=== PATIENT | female | born 2000 | race Caucasian/White ===

== ENCOUNTER 2023-04-25 22:10 | Outpatient (REF) | payer OTHER, SELFPAY ==
[2023-05-01 11:12] LABS: Age Gdln ACOG Testing Note (.); IGP, rfx Aptima HPV ASCU Note (.)
== END 2023-04-25 22:11 | disposition home or self-care (01) ==
LOC: LAB 22:10
PROVIDERS: PCP Obstetrics & Gynecology; Visit Provider Obstetrics & Gynecology
DX: Z12.4 Encounter for screening for malignant neoplasm of cervix (principal)
CPT/HCPCS: G0145

== ENCOUNTER 2024-04-29 19:03 | Outpatient (REF) | payer OTHER, SELFPAY | END 2024-04-29 19:04 | disposition home or self-care (01) | LOC: LAB 19:03 | PROVIDERS: PCP Obstetrics & Gynecology; Visit Provider Obstetrics & Gynecology | DX: Z01.419 Encounter for gynecological examination (general) (routine) without abnormal findings (principal) | CPT/HCPCS: 88175 ==

== ENCOUNTER 2024-12-10 12:02 | Outpatient (OUT) | payer OTHER, SELFPAY ==
[2024-12-11 05:07] LABS: HIV Ab/p24 Ag Screen Non Reactive (Non Reactive)
[2024-12-11 06:08] LABS: HBsAg Screen Negative (Negative)
[2024-12-11 12:09] LABS: Rapid Plasma Reagin, Quant Non Reactive titer (NonRea<1:1)
== END 2024-12-10 12:03 | disposition home or self-care (01) ==
LOC: LAB 12:06
PROVIDERS: Visit Provider Obstetrics & Gynecology
DX: Z20.2 Contact with and (suspected) exposure to infections with a predominantly sexual mode of transmission (principal)
CPT/HCPCS: 36415; 86592; 87340; 87389

== ENCOUNTER 2025-05-07 14:24 | Outpatient (REF) | payer OTHER, SELFPAY ==
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
--- OUTSIDE RECORDS SUMMARY | 2025-05-07 14:40 | XMS_ITS | Clinical Summary ---
Author Organization [facility] Address [address] [place] [address] Care Team Providers Care Sharepoint Developer Name Role Phone Self, Referred Primary Care Provider Unavailabl e Allergies No known active allergies Social History Tobacco Use Types Packs/Day Years Used Date Smoking Tobacco: Never Smokeless Tobacco: Never Tobacco Cessation:Counseling Given: Not Answered Alcohol Use Standard Drinks/Week Comments Yes 0 (1 standard drink = 0.6 oz pur e alcohol) socially Comments No Sex and Gender Information Value Date Recorded Sex Assigned at Not on file Legal Sex Female 12:18 PM EDT Gender Identity Not on file Sexual Orientation Not on file Last Filed Vital Signs Vital Sign Reading Time Taken Comments Blood Pressure 114/74 06/23/2024 12:27 PM EDT Pulse 94 06/23/2024 12:27 PM EDT Temperature 36.3 C (97.3 F) 06/23/2024 12:27 PM EDT Respiratory Rate 16 06/23/2024 12:27 PM EDT Oxygen Saturation 100% 06/23/2024 12:27 PM EDT Inhaled Oxygen Concentration - - Weight 66.7 kg (147 lb) 06/23/2024 12:27 PM EDT Height 160 cm (5' 3 ) 06/23/2024 12:27 PM EDT Body Mass Index 26.04 06/23/2024 12:27 PM EDT Plan of Treatment Health Maintenance Due Date Last Done Comments Varicella Vaccines (2 of 2 - 2-dose childhood series) 2005 04/11/2002 Depression Screening 2013 HPV Vaccines (1 - 3-dose series) 2016 Adult Tetanus 2023 04/11/2013 Influenza Vaccine (#1) 2025 06/27/2022, 2020 Pap Smear 04/29/2027 04/29/2024 Zoster Vaccines (1 of 2) 2051 04/11/2002 Pneumococcal Vaccine: Pediatrics (0 to 5 Years) and At-Risk Patients (6 to 64 Years) Aged Out 01/07/2002, 2001, 2001 No longer eligible based on patient's age to complete this topic HIB Vaccines Completed 10/21/2002, 01/2002, 2001, Additional history exists IPV Vaccines Completed 03/09/2006, 10/04, 2001, Additional history exists Meningococcal Vaccine Aged Out 04/11/2013 No sweta yaneli eligible based on patient's age to complete this topic Meningococcal B Vaccine Aged Out No l onger eligible based on patient's age to complete this topic Rotavirus Vaccines Aged Out No longer eligible based on patient's age to complete this topic Insurance [employer] Care Teams Sharepoint Developer Relationship Specialty Start Date End Date SELF, REFERRED [address] PCP - General 06/23/24
--- OUTSIDE RECORDS SUMMARY | 2025-05-07 14:40 | XMS_ITS | Encounter Summary ---
Author Organization [facility] Address [address] [place] [address] Care Team Providers Care Testing Coordinator Name Role Phone Imani Villatoro MD Primary Care Provider [phone] Kimberley Ramos ROGUER Unavailable [phone] Encounter Details Date Type Department Care Team (Late st Contact Info) Description 06/05/2023 Abstract [facility] [address] [place] [phone] Imani Villatoro MD Social History Tobacco Use Types Packs/Day Years Used Date Smoking Tobacco: Never Passive Smoke Exposure: Never Smokeless Tobacco: Never Alcohol Use Standard Drinks/Week Comments Yes 0 (1 standard drink = 0.6 oz pure alcohol) Occasionally. / Caffeine: 1-2 cups per day Humiliation, Afraid, Rape, and Kick questionnair e [...] often do you attend chur ch or jewish services? 1 to 4 times per year 03/22/2023 Do you belong to any clubs o r organizations such as pentecostalism groups, unions, fraternal or athletic groups, or school groups? No 03/22/2023 How often do you attend meet ings of the clubs or organizations you belong to? Patient declined 03/22/2023 Are you , , di vorced, , never , or living with a partner? Never 03/22/2023 AUDIT-C Answer Date Recorded Q1: How often do you have a drink containing alc ohol? Monthly or less 03/23/2023 Q2: How many drinks containi ng alcohol do you have on a typical day when you are drinking? 1 or 2 03/23/2023 Q3: How often do you have si x or more drinks on one occasion? Never 03/23/2023 Overall Financial Resource Strain (CARDIA) Answe r Date Recorded How hard is it for you to pa y for the very basics like food, housing, medical care, and heating? Somewhat hard 03/22/2023 [facility] Occupat ional Health - Occupational [...] place to sleep or slept in a long-term (including now)? Patient refused 03/22/2023 Comments Unknown Sex and Gender Information Value Date Recorded Sex Assigned at Not on file Legal Sex Female 6:59 PM EDT Gender Identity Female 11/15/2022 6:59 PM EDT Sexual Orientation Not on file COVID-19 Exposure Response Date Recorded In the last 10 days, have yo u been in contact with someone who was confirmed or suspected to have Coronavirus/COVID-19? No / Unsure 06/04/2023 10:33 AM EDT documented as of this encounter Plan of Treatment Upcoming Encounters Date Type Department Care Team (Late st Contact Info) Description 05/08/2025 9:30 AM EDT Office Visit [facility] [address] [place] [address] Kimberley Ramos NP [address] [place] [address] 05/13/2026 11:00 AM EDT Procedure Visit [facility] [address] [place] [address] Valentín Florez DO [address] [place] [address] documented as of this encounter Visit Diagnoses Not on filedocumented in this encounter Care Teams Testing Coordinator Relationship Specialty Start Date End Date Shauna, Imani Rogers MD PCP - General Family Medicine 03/22/23 Kimberley Ramos NP [address] [place] [address] Nurse Practitioner Family Medicine 02/03/25 documented as of this encounter
--- OUTSIDE RECORDS SUMMARY | 2025-05-07 14:41 | XMS_ITS | Clinical Summary ---
Author Organization [facility] Address [id number] [address] [place] [address] Care Team Providers Care Pipe Fitter Ammonia Name Role Phone Angel Black DO, Charles L Primary Care Provider Allergies No known active allergies Medications [id number] 0.18/0.215/0.25 mg-25 mcg per tablet 12/04/2017 Active Active Problems No known active problems Family History Medical History Relation Name Comments Diabetes Father Hyperlipidemia Father Diabetes Maternal Grandfather Heart disease Maternal Grandfather Stroke Maternal Grandfather Cancer Maternal Grandmother Diabetes Maternal Grandmother Heart disease Maternal Grandmother Asthma Mother Relation Name Status Comments Father Maternal Grandfather Maternal Grandmother gallbla dder cancer Mother Social History Tobacco Use Types Packs/Day Years Used Date Smoking Tobacco: Some Days Vaping/E-cigarettes Smokeless Tobacco: Never Tobacco Cessation:Counseling Given: Yes Alcohol Use Standard Drinks/Week Comments Yes 0 (1 standard drink = 0.6 oz pur e alcohol) sometimes Childcare Answer Date Recorded Childcare Unknown 02/12/2019 Employment Answer Date Recorded Employment Unknown 02/12/2019 Purpose - Life Answer Date Recorded Purpose and direction in life Unknown Comments No Sex and Gender Information Value Date Recorded Sex Assigned at Not on file Legal Sex Female 12:02 PM EDT Gender Identity Not on file Sexual Orientation Not on file Last Filed Vital Signs Vital Sign Reading Time Taken Comments Blood Pressure 110/60 12/26/2017 3:32 PM EDT Pulse - - Temperature - - Respiratory Rate - - Oxygen Saturation - - Inhaled Oxygen Concentration - - Weight 72.6 kg (160 lb) 12/26/2017 3:32 PM EDT Height 162.6 cm (5' 4 ) 12/26/2017 3:32 PM EDT Body Mass Index 27.46 12/26/2017 3:32 PM EDT Plan of Treatment Health Maintenance Due Date Last Done Comments Depression Screening 2013 Tobacco Screening 2013 Adult BMI Screening 2019 DTaP,Tdap and Td Vaccines (1 - Tdap) 2020 Pap Smear 2022 Influenza Vaccine 05/04/2025 Medical Devices Not on file Insurance [id number] [address] [address] Care Teams Pipe Fitter Ammonia Relationship Specialty Start Date End Date Eze Ortiz Jr., [address] [place], [place] [id number] PCP - General Internal Medicine 04/10/18
--- OUTSIDE RECORDS SUMMARY | 2025-05-07 14:41 | XMS_ITS | Clinical Summary ---
Author Organization [facility] Address [address] [place] [address] Care Team Providers Care Road Design Engineer Name Role Phone Imani Villatoro MD Primary Care Provider [phone] Kimberley Ramos FOUNTAIN DISPENSER Unavailable [phone] Allergies No known active allergies Medications SUMAtriptan (Imitrex) 100 MG tabletIndications :Migraine with aura and without status migrainosus, not intractable TAKE 1 TABLET BY MOUTH NEEDED FOR MIGRAINE MAY REPEAT 1 TIME DAILY. MAX 200 MG DAILY 9 tablet 3 4 Active norgestimate-ethi nyl estradiol (Ortho Tri-Cyclen,Trines sa) 0.18/0.215/0.25 MG-35 MCG tabletIndications : control counseling TAKE 1 TABLET BY MOUTH EVERY DAY IN THE MORNING 84 tablet 4 4 Active amphetamine-dextr oamphetamine XR (Adderall XR) 25 MG 24 hr capsuleIndication s:Attention deficit hyperactivity disorder (ADHD), predominantly inattentive type Take 1 capsule (25 mg) by mouth 1 (one) time each day at the same time 30 capsule 5 05/27/20 25 Active amphetamine-dextr oamphetamine XR (Adderall XR) 25 MG 24 hr capsuleIndication s:Attention deficit hyperactivity disorder (ADHD), predominantly inattentive type Take 1 capsule (25 mg) by mouth 1 (one) time each day at the same time 30 capsule 5 04/27/20 25 Discontin ued(Reord er) Active Problems Problem Noted Date Diagnosed Date Attention deficit hyperactiv ity disorder (ADHD), 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/2023 Resolved Problems Problem Noted Date Diagnosed Date Resolved Date Depression 01/22/2023 09/06/2023 History of cholecystectomy 01/22/2023 0 09/05/2024 Encounters Date Type Department Care Team Description 05/07/2025 10:00 AM EDT Office Visit [facility] [address] [place] [address] Valentín Florez, Well woman exam with routine gynecological exam 05/07/2025 Bamboo flowsheet [facility] [address] [place] [address] Valentín Florez DO 04/27/2025 Refill [facility] [address] [place] [phone] Imani Villatoro MD Attention deficit hyperactivity disorder (ADHD), predominantly inattentive type 03/27/2025 Refill [facility] [address] [place] [phone] Imani Villatoro MD Attention deficit hyperactivity disorder (ADHD), predominantly inattentive type 03/02/[facility] [address] [place] [phone] Imani Villatoro MD Attention deficit hyperactivity disorder (ADHD), predominantly inattentive type from Last 3 Months Immunizations Immunization Administration Dates Next Due DTaP, Unspecified 03/09/2006, 3,2001,08/09,2001 Hep B, Adolescent or Pediatric 01/07/2002,2000 Hib (PRP-T) 10/21/2002, 2,2001,06/13 IPV 03/09/2006, 3,2001,06/13 Influenza, Injectable, MDCK, preservative free 04/21/2025 Influenza, injectable, quadr ivalent, preservative free 06/27/2022,05/19/2021 MMR 03/09/2006,07/11/2002 Meningococcal MCV4P 04/11/2013 Pneumococcal Conjugate PCV 7 01/07/2002,08/09/20,2001 Tdap 11/06/2024,04/11/2013 Varicella 04/11/2002 Family History Medical History Relation Name Comments ADD / ADHD Brother Diabetes Father Malvin garcia Hyperlipidemia Father Malvin garcia Hypertension Father Malvin garcia Cancer Maternal Grandfather Gene hay Diabetes Maternal Grandfather Gene hay Heart disease Maternal Grandfather Gene hay Hypertension Maternal Grandfather Gene hay Stroke Maternal Grandfather Gene hay Accidental Maternal Grandmother Adela case Diabetes Maternal Grandmother [place] case Heart disease Maternal Grandmother [place] case Stroke Maternal Grandmother [place] case ADD / ADHD Mother Katie garcia Asthma Mother Katie garcia Cancer Paternal Grandfather Malvin garcia Cancer Paternal Grandmother Florjuliann lazcano Hypertension Paternal Grandmother Florjuliann lazcano Kidney disease Paternal Grandmother Flor lazcano Relation Name Status Comments Brother Father Malvin garcia Alive Maternal Grandfather Gene hay Maternal Grandmother Adela case Mother Katie garcia Alive Paternal Grandfather Malvin garcia Paternal Grandmother Flor lazcano Social History Tobacco Use Types Packs/Day Years Used Date Smoking Tobacco: Never Passive Smoke Exposure: Never Smokeless Tobacco: Never Tobacco Cessation:Counseling Given: [...] 05/30/2024 How often do you attend chur ch or adventism services? 1 to 4 times per year 05/30/2024 Do you belong to any clubs o r organizations such as worship groups, unions, fraternal or athletic groups, or [...] care, and heating? Not very hard 05/30/2024 [facility] Questionnaire Answer Date [...] place to sleep or slept in a halfway (including now)? Patient refused 03/22/2023 Housing Stability Vital Sign Answer Arnaud e Recorded In the last 12 months, was t here a time when you were not able to pay the mortgage or rent on time? No 05/30/2024 Number of Times Moved in the Last Year Not on fi le 05/30/2024 At [facility] time in the [facility] were you homeless or living in a halfway (including now)? No 05/30/2024 Comments Unknown Sex and Gender Information Value Date Recorded Sex Assigned at Not on file Legal Sex Female 6:59 PM EDT Gender Identity Female 11/15/2022 6:59 PM EDT Sexual Orientation Not on file Last Filed Vital Signs Vital Sign Reading Time Taken Comments Blood Pressure 120/74 05/07/2025 10:37 AM EDT Pulse 80 11/28/2024 8:26 AM EDT Temperature 36.9 C (98.4 F) 10/09/2024 3:16 PM EST Respiratory Rate - - Oxygen Saturation 99% 10/09/2024 3:16 PM EST Inhaled Oxygen Concentration - - Weight 73.4 kg (161 lb 12.8 oz) 025 10:37 AM EDT Height 160 cm (5' 3 ) 12/22/2022 12:00 PM EDT Body Mass Index 28.66 12/22/2022 12:00 PM EDT Plan of Treatment Upcoming Encounters Date Type Department Care Team (Late st Contact Info) Description 05/08/2025 9:30 AM EDT Office Visit [facility] [address] [place] [phone] Kimberley Ramos NP [address] [place], [place] [phone] 05/13/2026 11:00 AM EDT Procedure Visit [facility] [address] [place] [phone] Valentín Florez DO [address] [place] [address] Health Maintenance Due Date Last Done Comments Influenza Vaccine Completed 04/21/2025, 06/27/2022, 05/19/2021 Insurance [employer] Care Teams Road Design Engineer Relationship Specialty Start Date End Date Imani Villatoro MD PCP - General Family Medicine 03/22/23 Kimberley Ramos NP [address] [place], [place] [phone] Nurse Practitioner Family Medicine 02/03/25
--- OUTSIDE RECORDS SUMMARY | 2025-05-07 14:41 | XMS_ITS | Encounter Summary ---
Author Organization [facility] Address [address] [place] [address] Care Team Providers Care Motor Vehicle License Clerk Name Role Phone Imani Villatoro MD Primary Care Provider [phone] Kimberley Ramos STATE ARCHIVIST Unavailable [phone] Encounter Details Date Type Department Care Team (Late st Contact Info) Description [facility] [address] [place] [phone] Imani Villatoro MD Attention deficit hyperactivity disorder (ADHD), predominantly inattentive type Social History Tobacco Use Types Packs/Day Years [...] How often do you attend chur or judaism services? 1 to 4 times per year [...] care, and heating? Not very hard 05/30/2024 [facility] - Occupational [...] place to sleep or slept in a retirement (including now)? Patient refused 03/22/2023 Housing Stability Vital Sign Answer Arnaud e Recorded In the last 12 months, was t here a time when you were not able to pay the mortgage or rent on time? No 05/30/2024 Number of Times Moved in the Last Year Not on fi le 05/30/2024 At any time in the past 12 m [facility], were you homeless or living in a retirement (including now)? No 05/30/2024 Comments Unknown Sex and Gender Information Value Date Recorded Sex Assigned at Not on file Legal Sex Female 6:59 PM EDT Gender Identity Female 11/15/2022 6:59 PM EDT Sexual Orientation Not on file documented as of this encounter Miscellaneous Notes * Telephone Encounter - Kimberley Ramos NP - 04/27/2025 11:21 AM EDT OARRS reviewed, no red flags, rx sent. documented in this encounter Plan of Treatment Upcoming Encounters Date Type Department Care Team (Late st Contact Info) Description 05/08/2025 9:30 AM EDT Office Visit [facility] [address] [place] [address] Kimberley Ramos NP [address] [place] [phone] 05/13/2026 11:00 AM EDT Procedure Visit [facility] [address] [place] [phone] Valentín Florez DO [address] [place] [address] documented as of this encounter Visit Diagnoses Diagnosis Attention deficit hyperactivity disorder (ADHD), predominantly inattentive type documented in this encounter Care Teams Motor Vehicle License Clerk Relationship Specialty Start Date End Date Imani Villatoro MD PCP - General Family Medicine 03/22/23 Kimberley Ramos NP [address] [place], [place] [phone] Nurse Practitioner Family Medicine 02/03/25 documented as of this encounter
--- OUTSIDE RECORDS SUMMARY | 2025-05-07 14:41 | XMS_ITS | Encounter Summary ---
Author Organization [facility] Address [address] [place] [address] Care Team Providers Care Processor Grain Name Role Phone Imani Villatoro MD Primary Care Provider [phone] Kimberley Ramos MAIL CARRIERS SUPERVISOR Unavailable [phone] Encounter Details Date Type Department Care Team (Late st Contact Info) Description 05/07/2025 Bamboo flowsheet [facility] [address] [place] [phone] Valentín Florez DO [address] [place], [place] [phone] Social History Tobacco Use Types Packs/Day Years [...] How often do you attend chur or rastafarian services? 1 to 4 times per year 05/30/2024 Do you belong to any clubs o r organizations such as jehovah's witness groups, unions, fraMagine or athletic groups, or school groups? No [...] care, and heating? Not very hard 05/30/2024 [facility] - Occupational Stress [...] place to sleep or slept in a residential (including now)? Patient refused 03/22/2023 Housing Stability Vital Sign Answer Arnaud e Recorded In the last 12 months, was t here a time when you were not able to pay the mortgage or rent on time? No 05/30/2024 Number of Times Moved in the Last Year Not on fi le 05/30/2024 At any time in the past 12 m [facility], were you homeless or living in a residential (including now)? No 05/30/2024 Comments Unknown Sex [...] EDT Office Visit [facility] [address] [facility] [place] [phone] Kimberley Ramos NP [address] [place] [address] 05/13/2026 11:00 AM EDT Procedure Visit [facility] [address] [place] [address] Valentín Florez DO [address] [place] [address] documented as of this encounter Visit Diagnoses Not on filedocumented in this encounter Care Teams Processor Grain Relationship Specialty Start Date End Date Wonderly, Imani Rogers MD PCP - General Family Medicine 03/22/23 Kimberley Ramos NP [address] [place] [address] Nurse Practitioner Family Medicine 02/03/25 documented as of this encounter
--- OUTSIDE RECORDS SUMMARY | 2025-05-07 14:56 | XMS_ITS | CCD ---
Author Organization [facility] Care Team Providers Care Vegetable Worker Name Role Phone DR MABEL POST Primary Care Unavailable DR QUINCY FLOREZ Attending Unavailable DR QUINCY FLOREZ Consulting Unavailable DR QUINCY FLOREZ Admitting Unavailable Imani Villatoro MD Primary Care Provider Imani Villatoro MD Primary Care Provider ELSY SILVESTRE Referring Unavailable ELSY SILVESTRE Attending Unavailable SERGEI GUIDRY Attending Unavailable QUINCY FLOREZ Attending Unavailable SERGEI GUIDRY Attending Unavailable SERGEI GUIDRY Attending Unavailable SERGEI GUIDRY Attending Unavailable SERGEI GUIDRY Attending Unavailable QUINCY FLOREZ Attending Unavailable Imani Villatoro MD Primary Care Provider Sergei Guidry NP Unavailable [phone] Medications Current Medications Medication Drug Class(es) Dates Sig (Normalized) Sig (Original) [id number] 200 actuat albuterol 0.09 mg/actuat metered dose inhaler (15 sources) beta2-Adrenergi c Agonist Start: 09-09-2024 End: 03-02-2025 take 2 puff(s) by inhalation every four hours for wheezing albuterol HFA 90 mcg/act inhaler Indications: Shortness of breath INHALE 2 PUFFS EVERY 4 (FOUR) HOURS IF NEEDED FOR WHEEZING OR SHORTNESS OF BREATH. 18 g 10/02/2024 03/02/2025 Discontinued (Therapy completed) 24 hr amphetamine aspartate 6.25 mg / amphetamine sulfate 6.25 mg / dextroamphetamine saccharate 6.25 mg / dextroamphetamine sulfate 6.25 mg extended release oral capsule (20 sources) Central Nervous System Stimulant Start: 04-01-2024 End: 05-27-2025 take 1 capsule by mouth once daily amphetamine-dextro amphetamine XR (Adderall XR) 25 MG 24 hr capsule Indications: Attention deficit hyperactivity disorder (ADHD), predominantly inattentive type Take 1 capsule (25 mg) by mouth 1 (one) time each day at the same time 30 capsule 04/27/2025 05/27/2025 Active Start: 08-30-2023 End: 10-31-2023 take 1 capsule by mouth once daily amphetamine-dextroamphetamine XR (Addera ll XR) 25 MG 24 hr capsule Indications: Attention deficit hyperactivity disorder (ADHD), predominantly inattentive type (CMS/HCC) Take 1 capsule (25 mg) by mouth 1 (one) time each day at the same time 30 capsule 0 10/01/2023 10/31/2023 Active azithromycin 500 mg oral tablet (3 sources) Macrolide Antimicrobial Start: 12-12-2024 End: 03-02-2025 take 1 tablet by mouth once daily azithromycin (Zithromax) 500 MG tablet Indications: Bacterial infection due to mycoplasma Day 1: Take 2 tablets PO onetime dose; Day 2,3,4: Take 1 tablet daily 5 tablet 12/12/2024 03/02/2025 Discontinued (Therapy completed) Ethinyl Estradiol / norgestimate (20 sources) Progestin, Estrogen Start: 05-19-2024 take 1 tablet by mouth once daily in the morning norgestimate-ethin yl estradiol (Ortho Tri-Cyclen,Triness a) 0.18/0.215/0.25 MG-35 MCG tablet Indications: control counseling TAKE 1 TABLET BY MOUTH EVERY DAY IN THE MORNING 84 tablet 4 05/19/2024 Active Start: 12-03-2023 End: 12-02-2024 norgestimate-ethinyl estradi ol (Tri-Sprintec) 0.18/0.215/0.25 MG-35 MCG tablet Indications: control counseling Take 1 tablet by mouth Daily Ignore placebo and take next pack with goal of one period after finishing 3rd pack, then take placebos, call if questions 90 tablet 3 12/03/2023 12/02/2024 Active Start: 07-19-2023 End: 07-18-2024 take 1 tablet by mouth in the morning norgestimate-ethinyl estradiol (Tri-Sprintec) 0.18/0.215/0.25 MG-35 MCG tablet Indications: control counseling Take 1 tablet by mouth in the morning. 360 tablet 0 07/19/2023 07/18/2024 Active ondansetron 4 mg oral tablet (5 sources) Serotonin-3 Receptor Antagonist Start: 12-04-2024 End: 12-14-2024 take 1 tablet by mouth every eight hours as needed for nausea and vomiting and nausea and nausea ondansetron (Zofran) 4 MG tablet Indications: Nausea Take 1 tablet (4 mg) by mouth every 8 (eight) hours if needed for nausea or vomiting for up to 10 days 20 tablet 12/04/2024 12/14/2024 Active oseltamivir 75 mg oral capsule (2 sources) Neuraminidase Inhibitor Start: 10-09-2024 End: 10-14-2024 take 1 capsule by mouth in the morning oseltamivir (Tamiflu) 75 MG capsule Indications: Influenza A Take 1 capsule (75 mg) by mouth in the morning and 1 capsule (75 mg) before bedtime. Do all this for 5 days. 10 capsule 10/09/2024 10/14/2024 Active SUMAtriptan 100 mg oral tablet (20 sources) Serotonin-1b and Serotonin-1d Receptor Agonist Start: 01-17-2024 take 1 tablet by mouth once daily as needed SUMAtriptan (Imitrex) 100 MG tablet Indications: Migraine with aura and without status migrainosus, not intractable TAKE 1 TABLET BY MOUTH NEEDED FOR MIGRAINE MAY REPEAT 1 TIME DAILY. MAX 200 MG DAILY 9 tablet 3 01/17/2024 Active Start: 03-23-2023 take 1 tablet by mouth once PETERS MAtriptan (Imitrex) 100 MG tablet Indications: Migraine with aura and without status migrainosus, not intractable (CMS/HCC) Take 1 tablet (100 mg) by mouth 1 (one) time if needed for migraine for up to 1 dose. May repeat x 1 - max dose is 200mg per day 9 tablet 3 03/23/2023 Active Problems Active Problems Problem Classification Problem Date Documented Da te Episodic/Chronic Abdominal pain (2 sources) Unspecified abdominal pain; Translations: [Unspecified abdominal pain] Onset: 06-23-2024 Episodic Attention-deficit, conduct, and disruptive behavior disorders (20 sources) Attention deficit hyperactivity disorder, predominantly inattentive type; Translations: [Attention-deficit hyperactivity disorder, predominantly inattentive type] Onset: 01-22-2023 10-01-2023 Chronic Conditions associated with dizziness or vertigo (2 sources) Dizziness and giddiness; Translations: [Dizziness and giddiness] Onset: 06-23-2024 Episodic Fever of unknown origin (2 sources) Fever; Translations: [Fever, unspecified] 10-09-2024 Episodic Immunizations and screening for infectious disease (5 sources) Encounter for screening for human papillomavirus (HPV); Translations: [Exposure to sexually transmissible disorder] Onset: 04-20-2022 12-10-2024 Episodic Influenza (2 sources) Influenza due to Influenza A virus; Translations: [Influenza due to other identified influenza virus with other respiratory manifestations] 10-09-2024 Episodic Malaise and fatigue (2 sources) Fatigue; Translations: [Other fatigue] 10-09-2024 Episodic Other ear and sense organ disorders (2 sources) Bilateral earache; Translations: [Otalgia, bilateral] 10-09-2024 Episodic Other female genital disorders (2 sources) Vaginal discharge; Translations: [Other specified noninflammatory disorders of vagina] 12-10-2024 Episodic Other gastrointestinal disorders (2 sources) Constipation; Translations: [Other constipation] 05-30-2024 Episodic Other lower respiratory disease (1 source) Dyspnea; Translations: [Shortness of breath] 10-01-2024 Episodic Other lower respiratory disease (2 sources) Cough; Translations: [Cough, unspecified type] 10-09-2024 Episodic Other nervous system disorders (2 sources) Paresthesia of skin; Translations: [Paresthesia of skin] Onset: 06-23-2024 Episodic Other screening for suspected conditions (not mental disorders or infectious disease) (4 sources) Encounter for screening for malignant neoplasm of cervix; Translations: [ENC SCREENING MALIG NEOPLASM CERV] Onset: 04-19-2022 Episodic Other upper respiratory disease (2 sources) Other specified disorders of nose and nasal sinuses; Translations: [Other disease of nasal cavity and sinuses] 10-09-2024 Episodic Other upper respiratory infections (2 sources) Sore throat symptom; Translations: [Acute pharyngitis, unspecified] 10-09-2024 Episodic Residual codes; unclassified (2 sources) Chill; Translations: [Chills (without fever)] 10-09-2024 Episodic Residual codes; unclassified (2 sources) Generalized aches and pains; Translations: [Pain, unspecified] 10-09-2024 Episodic Past or Other Problems Problem Classification Problem Date Documented Da te Episodic/Chronic Mood disorders (20 sources) Depressive disorder; Translations: [Depression] Onset: 01-22-2023 Resolved: 09-06-2023 09-06-2023 Chronic Results Test Name Value Interpretation Reference Range Facility HIV AB/P24 AG WITH REFLEXon 12-11-2024 HIV AB/P24 AG SCREEN Non-Reactive Non Reactive [facility] Comment on above: HIV-1/HIV-2 antibodi es and HIV-1 p24 antigen were NOT detected. There is no laboratory evidence of HIV infection. HIV Negative Performed at: [address] [id number] Seat Builder: Ralf Sahu PhD, Phone: [phone] [facility] RECURRENT VAGINITIS (HTRX)on 12-11-2024 ATOPOBIUM VAGINAE 23.839 Abnormal [facility] ATOPOBIUM VAGINAE Detected Abnormal [facility] BVAB 2,3 (BACTERIAL VAGINOSIS ASSOCIATED BACTERIA 2, 3); MOBILUNCUS SPP 0 [facility] BVAB 2,3 (BACTERIAL VAGINOSIS ASSOCIATED BACTERIA 2, 3); MOBILUNCUS SPP Not detected [facility] MICHAEL ALBICANS, PARAPSILOSIS, TROPICALIS 0 [facility] MICHAEL ALBICANS, PARAPSILOSIS, TROPICALIS Not detected [facility] MICHAEL GLABRATA 0 [facility] MICHAEL GLABRATA Not detected [facility] MICHAEL KRUSEI 0 [facility] MICHAEL KRUSEI Not detected [facility] CHLAMYDIA TRACHOMATIS 0 [facility] CHLAMYDIA TRACHOMATIS Not detected [facility] ERMB, C; MEFA 20.732 Abnormal [facility] ERMB, C; MEFA Detected Abnormal [facility] GARDNERELLA VAGINALIS 23.456 Abnormal [facility] GARDNERELLA VAGINALIS Detected Abnormal [facility] Interpretation and review of laboratory results Abnormal [facility] MEGASPHAERA (TYPES 1, 2) 0 [facility] MEGASPHAERA (TYPES 1, 2) Not detected [facility] MYCOPLASMA GENITALIUM 27.856 Abnormal [facility] MYCOPLASMA GENITALIUM Detected Abnormal [facility] NEISSERIA GONORRHOEAE 0 [facility] NEISSERIA GONORRHOEAE Not detected [facility] TET B, TET M 26.738 Abnormal [facility] TET B, TET M Detected Abnormal [facility] TRICHOMONAS VAGINALIS 0 [facility] TRICHOMONAS VAGINALIS Not detected [facility] - Microbiology an d Antimicrobial susceptibilityon 10-09-2024 S. pyogenes Ag Ql (Throat) Negative Negative, None Detected [facility] SARS-CoV-2 (COVID-19) RNA YARI+probe Ql (Unsp spec) Negative [facility] No Panel Informationon 10-09 [facility] FLU A Positive [facility] FLU B Negative [facility] CBC WITH AUTO DIFFERENTIALon 06-23-2024 Basophils (Bld) [#/Vol] 0.05 10*3/uL Normal 0.00-0.20 [facility] Comment on above: Performed By: #### L [id number] #### [facility] ([facility]) [address] [place] [address] Basophils/100 WBC (Bld) 0.6 % Normal 0.0-1.0 [facility] Comment on above: Performed By: #### L [id number] #### [facility] ([facility]) [address] [place] [address] Eosinophils (Bld) [#/Vol] 0.04 10*3/uL Normal 0.00-0.50 [facility] Comment on above: Performed By: #### L [id number] #### [facility] ([facility]) [address] [place] [address] Eosinophils/100 WBC (Bld) 0.5 % Normal 0.0-6.0 [facility] Comment on above: Performed By: #### L [id number] #### [facility] ([facility]) [address] [place] [address] Erythrocyte distribution width (RBC) [Ratio] 12.9 % Normal 11.5-15.0 [facility] Comment on above: Performed By: #### L [id number] #### [facility] ([facility]) [address] [place] [address] ERYTHROCYTE MEAN CORPUSCULAR HEMOGLOBIN CONCENTRATION (G/DL) BY AUTOMATED 32.8 g/dL Normal 32.0-35.0 [facility] Comment on above: Performed By: #### L [id number] #### [facility] ([facility]) [address] [address] Hematocrit (Bld) [Volume fraction] 39.6 % Normal 36.0-48.0 [facility] Comment on above: Performed By: #### L [id number] #### [facility] ([facility]) [address] [address] Hemoglobin (Bld) [Mass/Vol] 13.0 g/dL Normal 12.0-15.0 [facility] Comment on above: Performed By: #### L [id number] #### [facility] ([facility] [address] [place] [address] Immature granulocytes (Bld) [#/Vol] 0.03 10*3/uL Normal 0.00-0.20 [facility] Comment on above: Performed By: #### L [id number] #### [facility] ([facility]) [address] [place] [address] Immature granulocytes/100 WBC (Bld) 0.4 % Normal 0.0-1.0 [facility] Comment on above: Performed By: #### L [id number] #### [facility] ([facility]) [address] [place] [address] Lymphocytes (Bld) [#/Vol] 1.75 10*3/uL Normal 1.20-4.00 [facility] Comment on above: Performed By: #### L [id number] #### [facility] ([facility]) [address] [place] [address] Lymphocytes/100 WBC (Bld) 20.6 % Normal 20.0-45.0 [facility] Comment on above: Performed By: #### L [id number] #### [facility] ([facility]) [address] [place] [address] MCH (RBC) [Entitic mass] 30.2 pg Normal 27.0-33.0 [facility] Comment on above: Performed By: #### L [id number] #### [facility] ([facility]) [address] [place] [address] MCV (RBC) [Entitic vol] 91.9 fL Normal 82.0-98.0 [facility] Comment on above: Performed By: #### L [id number] #### [facility] ([facility]) [address] [place] [address] Monocytes (Bld) [#/Vol] 0.29 10*3/uL Normal 0.10-1.00 [facility] Comment on above: Performed By: #### L [id number] #### [facility] ([facility]) [address] [place] [address] Monocytes/100 WBC (Bld) 3.4 % Low 5.0-12.0 [facility] Comment on above: Performed By: #### L [id number] #### [facility] ([facility]) [address] [place] [address] Neutrophils (Bld) [#/Vol] 6.33 10*3/uL Normal 1.60-7.60 [facility] Comment on above: Performed By: #### L [id number] #### [facility] ([facility]) [address] [place] [address] Neutrophils/100 WBC (Bld) 74.5 % High 40.0-72.0 [facility] Comment on above: Performed By: #### L [id number] #### [facility] ([facility]) [address] [place] [address] NRBC (PER 100 WBCS) BY AUTOMATED COUNT 0.0 % Normal 0 [facility] Comment on above: Performed By: #### L [id number] #### [facility] ([facility]) [address] [place] [address] PLATELETS (10*3/UL) IN BLOOD AUTOMATED COUNT 277 10*3/uL Normal 150-400 [facility] Comment on above: Performed By: #### L [id number] #### [facility] ([facility]) [address] [place] [address] RBC (Bld) [#/Vol] 4.31 10*6/uL Normal 3.80-5.00 [facility] Comment on above: Performed By: #### L [id number] #### [facility] ([facility]) [address] [place] [address] WBC (Bld) [#/Vol] 8.49 10*3/uL Normal 4.00-10.60 [facility] Comment on above: Performed By: #### L [id number] #### [facility] ([facility]) [address] [place] [address] COMPREHENSIVE METABOLIC PANE Peter 06-23-2024 Albumin [Mass/Vol] 4.2 g/dL Normal 3.5-5.7 [facility] Comment on above: Performed By: #### L [id number] #### [facility] ([facility]) [address] [place] [address] ALP [Catalytic activity/Vol] 65 U/L Normal 34-104 [facility] Comment on above: Performed By: #### L [id number] #### [facility] ([facility]) [address] [place] [address] ALT [Catalytic activity/Vol] 8 U/L Normal 7-52 [facility] Comment on above: Performed By: #### L [id number] #### [facility] ([facility]) [address] [place] [address] Anion gap [Moles/Vol] 11 mmol/L Normal 7-20 [facility] Comment on above: Performed By: #### L [id number] #### [facility] ([facility]) [address] [place] [address] AST [Catalytic activity/Vol] 12 U/L Low 13-39 [facility] Comment on above: Performed By: #### L [id number] #### [facility] ([facility]) [address] [place] [address] Bilirubin [Mass/Vol] 0.6 mg/dL Normal 0.3-1.0 [facility] Comment on above: Performed By: #### L [id number] #### [facility] ([facility]) [address] [place] [address] Calcium [Mass/Vol] 9.2 mg/dL Normal 8.6-10.3 [facility] Comment on above: Performed By: #### L [id number] #### [facility] ([facility]) [address] [place] [address] Chloride [Moles/Vol] 105 mmol/L Normal 98-107 [facility] Comment on above: Performed By: #### L [id number] #### [facility] ([facility]) [address] [place] [address] CO2 [Moles/Vol] 25 mmol/L Normal 21-31 [facility] Comment on above: Performed By: #### L [id number] #### [facility] ([facility]) [address] [place] [address] Creatinine [Mass/Vol] 0.90 mg/dL Normal 0.60-1.20 [facility] Comment on above: Performed By: #### L [id number] #### [facility] ([facility]) [address] [place] [address] GLOMERULAR FILTRATION RATE ML/MIN/1.73 SQ M.PREDICTED 92.1 mL/min/1.73m*2 Normal >60.0 [facility] Comment on above: Result Comment: The [facility]???s estimated glomerular filtration rate (eGFR) will no longer include consideration of race in its calculation. The National Kidney Foundation???s eGFR Task Force developed new recommendations for the estimation of the glomerular filtration rate in the [place] They recommend immediate implementation of the new equation refit without the race variable in all laboratories because the calculation does not include race. In addition to not including race in the calculation and reporting, it included diversity in its development, and has acceptable performance characteristics and potential consequences that do not disproportionately affect any one group of individuals. Performed By: #### L [id number] #### [facility] ([facility]) [address] [place] [address] Glucose [Mass/Vol] 103 mg/dL High 70-100 [facility] Comment on above: Performed By: #### L [id number] #### [facility] ([facility]) [address] [place] [address] Potassium [Moles/Vol] 3.9 mmol/L Normal 3.5-5.1 [facility] Comment on above: Performed By: #### L [id number] #### [facility]) [address] [place] [address] Protein [Mass/Vol] 7.1 g/dL Normal 6.0-8.3 [facility] Comment on above: Performed By: #### L [id number] #### [facility] ([facility]) [address] [place] [address] Sodium [Moles/Vol] 137 mmol/L Normal 136-145 [facility] Comment on above: Performed By: #### L [id number] #### [facility]) [address] [place] [address] Urea nitrogen [Mass/Vol] 14 mg/dL Normal 7-25 [facility] Comment on above: Performed By: #### L [id number] #### [facility] ([facility]) [address] [place] [address] UREA NITROGEN/CREATININE (MASS RATIO) IN SER/PLAS 15.6 Normal [facility] Comment on above: Performed By: #### L [id number] #### [facility] ([facility]) [address] [place] [address] EDNURSon 06-23-2024 EDNURS Mode of arrival (squ ad #, walk in, police, etc): Walk-in Chief complaint(s): Dizziness Arrival Note (brief scenario, treatment FRONT OFFICE REPRESENTATIVE, etc): Pt arrives stating she has been feeling really dizzy since yesterday. Pt also reports that she has felt weak and had random bruising show up on her arms and legs. Pt denies having a hx of anemia or low iron. Pt reports last menstrual period was normal. Normal [facility] EDPROVon 06-23-2024 EDPROV HPI Chief Complaint Patient presents with Dizziness HPI Char Coma Scale Score: 15 Patient History History reviewed. No pertinent past medical history. Past Surgical History: Procedure Laterality Date CHOLECYSTECTOMY No family history on file. Social History Tobacco Use Smoking status: Never Smokeless tobacco: Never Vaping Use Vaping Use: Never used Substance Use Topics Alcohol use: Yes Comment: socially Drug use: Never Review of Systems Review of Systems Physical Exam ED Triage Vitals [06/23/24 1227] Temp Heart Rate Resp BP 36.3 ???C (97.3 ???F) 94 16 114/74 SpO2 Temp Source Heart Rate Source Patient Position 100 % Oral Monitor Sitting BP Location FiO2 (%) Left arm -- Physical Exam Procedures ED Course & MDM Medical Decision Making INeno (-scribe), documented on behalf of Dr. Silvestre on 06/23/2024 at 1:32. Shahrzad Fernandez is a 24 y.o. female presenting to the ED with chief complaint of dizziness. Dr. Silvestre personally saw and evaluated the patient. Dr. Silvestre discussed the management with the resident, Dr. Silvestre. Dr. Silvestre reviewed the resident's note and agrees with the documentation. Dr. Silvestre performed the substantive portion of the Physical exam. Exam findings as follows: mild epigastric tenderness, negative abdi sign, negative Mcburney test, bruising on the lateral aspect of thigh, otherwise normal Attestation: I performed a history and physical exam on this patient and discussed his or her management with the resident. I reviewed the resident's note and agree with the documented findings and plan of care with the following exceptions: Provider Statement DARRELL: Provider Statement 2nd Scribe. By electronically signing this emergency patient record, the Emergency Physician/SEAM RUBBER/PA-C attests that all entries made into the electronic medical record by the scribe prior to the Physician/SEAM RUBBER/PA-C signature reflect an accurate accounting of the evaluation and care rendered by that Emergency Physician/SEAM RUBBER/PA-C. The Emergency Physician/SEAM RUBBER/PA-C assumes full responsibility for those entries. The Emergency Physician/SEAM RUBBER/PA-C also attests that any patient testing or treatment that was instituted by nursing staff. [facility] EDPROV HPI Chief Complaint Patient presents with Dizziness HPI 24-year-old female with no significant past medical history presenting due to lightheadedness and paresthesias in all extremities that been ongoing over the last couple days. Patient denies any recent illnesses. Patient [place] any other associated symptoms with it. Patient denies any recent new medications or changes in medications. Patient denies any alcohol, tobacco, or illicit drug use. Patient does not have a family history of cardiac disease. Patient does not have a history of blood clots, recent hospitalization, recent surgery, hormone use, or cancer. Scribner Coma Scale Score: 15 Patient History History reviewed. No pertinent past medical history. Past Surgical History: Procedure Laterality Date CHOLECYSTECTOMY No family history on file. Social History Tobacco Use Smoking status: Never Smokeless tobacco: Never Vaping Use Vaping Use: Never used Substance Use Topics Alcohol use: Yes Comment: socially Drug use: Never Review of Systems Review of Systems Constitutional: Negative for chills and fever. HENT: Negative for ear pain and sore throat. Eyes: Negative for pain and visual disturbance. Respiratory: Negative for cough and shortness of breath. Cardiovascular: Negative for chest pain and palpitations. Gastrointestinal: Negative for abdominal pain and vomiting. Genitourinary: Negative for dysuria and hematuria. Musculoskeletal: Negative for arthralgias and back pain. Skin: Negative for color change and rash. Neurological: Negative for seizures and syncope. All other systems reviewed and are negative. Physical Exam ED Triage Vitals [06/23/24 1227] Temp Heart Rate Resp BP 36.3 ???C (97.3 ???F) 94 16 114/74 SpO2 Temp Source Heart Rate Source Patient Position 100 % Oral Monitor Sitting BP Location FiO2 (%) Left arm -- Physical Exam Vitals and nursing note reviewed. Constitutional: General: She is not in acute distress. Appearance: She is well-developed. HENT: Head: Normocephalic and atraumatic. Eyes: Conjunctiva/sclera: Conjunctivae normal. Cardiovascular: Rate and Rhythm: Normal rate and regular rhythm. Heart sounds: No murmur heard. Pulmonary: Effort: Pulmonary effort is normal. No respiratory distress. Breath sounds: Normal breath sounds. Abdominal: Palpations: Abdomen is soft. Tenderness: There is no abdominal tenderness. Musculoskeletal: General: No swelling. Cervical back: Neck supple. Skin: General: Skin is warm and dry. Capillary Refill: Capillary refill takes less than 2 seconds. Neurological: Mental Status: She is alert and oriented to person, place, and time. GCS: GCS eye subscore is 4. GCS verbal subscore is 5. GCS motor subscore is 6. Cranial Nerves: Cranial nerves 2-12 are intact. Sensory: Sensation is intact. Motor: Motor function is intact. Coordination: Coordination is intact. Gait: Gait is intact. Psychiatric: Mood and Affect: Mood normal. ECG 12 lead Performed by: Elsy Silvestre MD Authorized by: Elsy Silvestre MD Rate: ECG rate: 66 Rhythm: Rhythm: sinus rhythm Comments: Qtc-Baz: 404 ms. Normal ECG ED Course & MDM ED Course as of 06/23/241817 Mon Jun 23, 2024 1436 Preg Test, Ur: Negative [NF] 1436 Auto WBC: 8.49 [NF] ED Course User Index [NF] Elsy Silvestre MD Diagnoses as of 06/23/241817 Lightheadedness Paresthesias Abdominal discomfort Medical Decision Making On arrival patient's vital signs stable and within normal limits. On exam patient's does not have any focal neurologic deficits. Rest of exam is unremarkable. Differential includes but not limited to electrolyte abnormality, dehydration, and anemia. Will do lab workup and cardio workup. Lab workup showed no significant abnormalities. Patient's EKG does not show any evidence of arrhythmia or ischemia. Patient is PERC negative making her low risk for PE. Instructed patient to follow-up with PCP. Advised patient to return with any new or worsening symptoms including but not limited to any other neurological changes or altered mental status. Shared decision making with patient and agreeable with plan and discharge. Neno Gardner (-scribe), documented on behalf of Dr. Silvestre on 06/23/2024 at 1:32. Shahrzad Fernandez is a 24 y.o. female presenting to the ED with chief complaint of dizziness. Dr. Silvestre personally saw and evaluated the patient. Dr. Silvestre discussed the management with the resident, Dr. Silvestre. Dr. Silvestre reviewed the resident's note and agrees with the documentation. Dr. Silvestre performed the substantive portion of the Physical exam. Exam findings as follows: mild epigastric tenderness, negative abdi sign, negative Mcburney test, bruising on the lateral aspect of thigh, otherwise normal ------ RESULTS ----- (more content not included)... Invalid Interpretation Code [facility] EDPROV This report has been cancelled. Normal [facility] LIPASEon 06-23-2024 LIPASE (U/L) IN SER/PLAS 21 U/L Normal 11-82 [facility] Comment on above: Performed By: #### L [id number] #### [facility] ([facility]) [address] [place] [address] MAGNESIUMon 06-23-2024 Magnesium [Mass/Vol] 1.9 mg/dL Normal 1.9-2.7 [facility] Comment on above: Performed By: #### L [id number] #### [facility] ([facility]) [address] [place] [address] IGP,APTIMA HPV,AGE GDLNon AGE GDLN ACOG TESTING Note . [facility] Comment on above: TESTS RESULT FLAG UN ITS REF RANGE LAB Clinician Provided Cytology Information Source.............Cervix;Endocervix No. of containers..01 ThinPrep Vial Age Algo ACOG Shawna... FLAG LEGEND: L-Low Normal,H-High Normal,LL-Alert Low,HH-Alert High <-Panic Low,>-Panic High,A-Abnormal,AA-Critical Abnormal Performed at: 01 =[address] [address] Chani Gonzales MD, IGP, RFX APTIMA HPV ASCU Note . [facility] Comment on above: TESTS RESULT FLAG UN ITS REF RANGE LAB DIAGNOSIS: 02 NEGATIVE FOR INTRAEPITHELIAL LESION OR MALIGNANCY. Specimen adequacy: 02 Satisfactory for evaluation. Endocervical and/or squamous metaplastic cells (endocervical component) are present. Performed by: Shamika Flanagan, Local Company Tanker Driver ([facility]) . 02 Note: Note 03 The Pap smear is a screening test designed to aid in the detection of premalignant and malignant conditions of the uterine cervix. It is not a diagnostic procedure and should not be used as the sole means of detecting cervical cancer. Both false-positive and false-negative reports do occur. Test Methodology: Note 03 This liquid based ThinPrep(R) pap test was screened with the use of an image guided system. . 02 The HPV DNA reflex criteria were not met with this specimen result therefore, no HPV testing was performed. FLAG LEGEND: L-Low Normal,H-High Normal,LL-Alert Low,HH-Alert High <-Panic Low,>-Panic High,A-Abnormal,AA-Critical Abnormal Performed at: 02 [facility] [address] [place] [address] Jaspreet Gonzalez MD, 03 WB [facility] [address] [address] Chani Gonzales MD, Performed at: =G - [facility] [address] [id number] Seat Builder: Chani Gonzales MD, Phone: [phone] Performed at: [facility] - [facility] [address] [place], [place] [id number] Seat Builder: Jaspreet Gonzalez MD, Phone: [phone] BRUSH-SPATULA CERVIX ENDOCERVIX [facility] PAP ACOG PANEL 2: 21 to 29on 04-24-2022 . . [facility] Comment on above: Performed By: #### [id number] #### [facility] [address] [place] [address] Dr. José Rodríguez Age Gdln ACOG Testing 22- Normal [facility] Comment on above: Performed By: #### [id number] #### [facility] [address] [address] [address] José Rodríguez DIAGNOSIS: Comment [facility] Comment on above: Result Comment: NEGA TIVE FOR INTRAEPITHELIAL LESION OR MALIGNANCY. Performed By: #### [id number] #### [facility] [address] [address] [address] José Rodríguez Methodology: Comment [facility] Comment on above: Result Comment: This liquid based ThinPrep(R) pap test was screened with the use of an image guided system. Performed By: #### 4 [id number] #### [facility] [address] [place] [address] Dr. José Rodríguez Note: Comment Normal [facility] Comment on above: Result Comment: The Pap smear is a screening test designed to aid in the detection of premalignant and malignant conditions of the uterine cervix. It is not a diagnostic procedure and should not be used as the sole means of detecting cervical cancer. Both false-positive and false-negative reports do occur. . Performed By: #### [id number] #### [facility] [address] [place] [address] Dr. José Rodríguez Performed by: Comment Normal [facility] Comment on above: Result Comment: Nita Vargas, Local Company Tanker Driver (ASCP) Performed By: #### 4 [id number] #### [facility] [address] [place] [address] Dr. José Rodríguez Reflex Criteria: Comment Normal [facility] Comment on above: Result Comment: The HPV DNA reflex criteria were not met with this specimen result therefore, no HPV testing was performed. . Performed By: #### 4 [id number] #### [facility] [address] [place] [address] Dr. José Rodríguez Specimen adequacy: Comment Normal [facility] Comment on above: Result Comment: Sati sfactory for evaluation. Endocervical and/or squamous metaplastic cells (endocervical component) are present. Performed By: #### 4 [id number] #### [facility] [address] [place] [address] Dr. José Rodrgíuez Vital Signs Date Time Vital Sign Value Performing Clinician Jerzyi lity 05-07-2025 10:37-0400 Body mass index (BMI) [Ratio] 28.66 kg/m2 [employer] Work Phone: [facility] 05-07-2025 10:37-0400 Body weight 73.39 kg [employer] Work Phone: [facility] 05-07-2025 10:37-0400 Diastolic blood pressure 74 mm[Hg] [employer] Work Phone: [facility] 05-07-2025 10:37-0400 Systolic blood pressure 120 mm[Hg] Quincy Vikki DO Work Phone: [facility] 12-10-2024 11:20-0400 Body mass index (BMI) [Ratio] 27.9 kg/m2 Quincy Vikki DO Work Phone: [facility] 12-10-2024 11:20-0400 Body weight 71.44 kg Quincy Vikki DO Work Phone: [facility] 12-10-2024 11:20-0400 Diastolic blood pressure 80 mm[Hg] Quincy Vikki DO Work Phone: [facility] 12-10-2024 11:20-0400 Systolic blood pressure 126 mm[Hg] Quincy Vikki DO Work Phone: [facility] 11-28-2024 08:26-0400 Body mass index (BMI) [Ratio] 27.74 kg/m2 Sergei Guidry SEAM RUBBER Work Phone: [facility] 11-28-2024 08:26-0400 Body weight 71.03 kg Sergei Guidry SEAM RUBBER Work Phone: [facility] 11-28-2024 08:26-0400 Diastolic blood pressure 72 mm[Hg] Sergei Guidry SEAM RUBBER Work Phone: [facility] 11-28-2024 08:26-0400 Heart rate 80 /min Sergei Guidry SEAM RUBBER Work Phone: [facility] 11-28-2024 08:26-0400 Systolic blood pressure 100 mm[Hg] Sergei Guidry SEAM RUBBER Work Phone: [facility] 10-09-2024 15:16-0500 Body mass index (BMI) [Ratio] 27.74 kg/m2 Sergei Guidry NP Work Phone: [facility] 10-09-2024 15:16-0500 Body temperature 98.4 [degF] Sergei Guidry SEAM RUBBER Work Phone: [facility] 10-09-2024 15:16-0500 Body weight 71.03 kg Sergei Guidry SEAM RUBBER Work Phone: [facility] 10-09-2024 15:16-0500 Diastolic blood pressure 70 mm[Hg] Sergei Guidry SEAM RUBBER Work Phone: [facility] 10-09-2024 15:16-0500 Heart rate 95 /min Sergei Guidry SEAM RU[employer]ER Work Phone: [facility] 10-09-2024 15:16-0500 SaO2% (BldA) [Mass fraction] 99 % Sergei Guidry SEAM RUBBER Work Phone: [facility] 10-09-2024 15:16-0500 Systolic blood pressure 130 mm[Hg] Sergei Guidry SEAM RUBBER Work Phone: [facility] 09-05-2024 09:20-0500 Body mass index (BMI) [Ratio] 27.67 kg/m2 Sergei Guidry SEAM RUBBER Work Phone: [facility] 09-05-2024 09:20-0500 Body weight 70.85 kg Sergei Guidry SEAM RUBBER Work Phone: [facility] 09-05-2024 09:20-0500 Diastolic blood pressure 60 mm[Hg] Sergei Guidry SEAM RUBBER Work Phone: [facility] 09-05-2024 09:20-0500 Heart rate 72 /min Sergei Guidry SEAM RUBBER Work Phone: [facility] 09-05-2024 09:20-0500 Systolic blood pressure 120 mm[Hg] Sergei Guidry SEAM RUBBER Work Phone: [facility] 05-30-2024 14:57-0400 Diastolic blood pressure 78 mm[Hg] Sergei Guidry SEAM RUBBER Work Phone: [facility] 05-30-2024 14:57-0400 Systolic blood pressure 142 mm[Hg] Sergei Guidry SEAM RUBBER Work Phone: [facility] 05-30-2024 14:50-0400 Body mass index (BMI) [Ratio] 26.64 kg/m2 Sergei Guidry NP Work Phone: [facility] 05-30-2024 14:50-0400 Body weight 68.22 kg Sergei Guidry NP Work Phone: [facility] 05-30-2024 14:50-0400 Heart rate 88 /min Sergei Guidry NP Work Phone: [facility] 04-29-2024 11:22-0400 Body mass index (BMI) [Ratio] 27.48 kg/m2 Quincy Vikki DO Work Phone: [facility] 04-29-2024 11:22-0400 Body weight 70.36 kg Quincy Vikki DO Work Phone: [facility] 04-29-2024 11:22-0400 Diastolic blood pressure 70 mm[Hg] Quincy Vikki DO Work Phone: [facility] 04-29-2024 11:22-0400 Systolic blood pressure 120 mm[Hg] Quincy Vikki DO Work Phone: [facility] Encounters Encounter Date Encounter Type Care Provider Facility Start: 05-07-2025 End: 05-07-2025 Bamboo flowsheet Quincy Vikki DO Work Phone: [facility] Start: 05-07-2025 End: 05-07-2025 Bamboo flowsheet Quincy Vikki DO Work Phone: [facility] Start: 05-07-2025 End: 05-07-2025 Patient encounter procedure Quincy Vikki DO Work Phone: [facility] Work Phone: Start: 05-07-2025 End: 05-07-2025 Periodic preventive med est patient 18-39 yrs Quincy Vikki DO Work Phone: [facility] Comment on above: Well woman exam with routine gynecological exam Start: 04-27-2025 End: 04-27-2025 Refill Imani Villatoro MD Other Phone: [facility] Comment on above: Attention deficit hy peractivity disorder (ADHD), predominantly inattentive type Start: 03-27-2025 End: 03-31-2025 Refill Imani Villatoro MD Other Phone: [facility] Comment on above: Attention deficit hy peractivity disorder (ADHD), predominantly inattentive type Start: 03-02-2025 End: 03-02-2025 Refill Imani Villatoro MD Other Phone: [facility] Comment on above: Attention deficit hy peractivity disorder (ADHD), predominantly inattentive type Start: 01-28-2025 End: 01-29-2025 Refill Imani Villatoro MD Work Phone: [facility] Comment on above: Attention deficit hy peractivity disorder (ADHD), predominantly inattentive type (CMS/HCC) Start: 12-30-2024 End: 12-30-2024 Refill Imani Villatoro MD Work Phone: [facility] Comment on above: Attention deficit hy peractivity disorder (ADHD), predominantly inattentive type (CMS/HCC) Start: 12-10-2024 End: 12-10-2024 Bamboo flowsheet Quincy Vikki DO Work Phone: [facility] Start: 12-10-2024 End: 12-11-2024 Bamboo flowsheet Quincy Vikki DO Work Phone: [facility] Start: 12-10-2024 End: 12-11-2024 Clinisync Result Encounter Quincy Vikki DO Work Phone: [facility] Unsolicited Start: 12-10-2024 End: 12-11-2024 External Result Encounter Quincy Vikki DO Work Phone: [facility] Start: 12-10-2024 End: 12-10-2024 Office outpatient visit 15 minutes Quincy Vikki DO Work Phone: [facility] Comment on above: STD exposure; Vaginal discharge; Sexually transmitted disease exposure Start: 12-10-2024 End: 12-10-2024 ambulatory QUINCY FLOREZ Not Available Start: 11-28-2024 End: 11-28-2024 Bamboo flowsheet Sergei Guidry SEAM RUBBER Work Phone: [facility] Start: 11-28-2024 End: 11-28-2024 Bamboo flowsheet Sergei Guidry SEAM RUBBER Work Phone: [facility] Start: 11-28-2024 End: 11-28-2024 Office outpatient visit 15 minutes Sergei Guidry SEAM RUBBER Work Phone: [facility] Comment on above: Attention deficit hy peractivity disorder (ADHD), predominantly inattentive type (CMS/HCC) (Primary Dx) Start: 11-28-2024 End: 11-28-2024 ambulatory SERGEI GUIDRY Not Available Start: 11-03-2024 End: 11-04-2024 Refill Imani Villatoro MD Work Phone: [facility] Comment on above: Attention deficit hy peractivity disorder (ADHD), predominantly inattentive type (CMS/HCC) Start: 10-09-2024 End: 10-09-2024 Office outpatient visit 25 minutes Sergei Guidry SEAM RUBBER Work Phone: [facility] Comment on above: Influenza A (Primary Dx); Cough, unspecified type; Fever, unspecified fever cause; Chills; Body aches; Other fatigue; Otalgia of both ears; Sinus pressure; Sore throat Start: 10-09-2024 End: 10-09-2024 ambulatory SERGEI GUIDRY Not Available Start: 10-07-2024 End: 10-07-2024 Refill Imani Villatoro MD Work Phone: [facility] Comment on above: Attention deficit hy peractivity disorder (ADHD), predominantly inattentive type (CMS/HCC) Start: 10-01-2024 End: 10-02-2024 Refill Sergei Guidry SEAM RUBBER Work Phone: [facility] Comment on above: Shortness of breath Start: 09-05-2024 End: 09-05-2024 Bamboo flowsheet Sergei Guidry SEAM RUBBER Work Phone: [facility] Start: 09-05-2024 End: 09-05-2024 Bamboo flowsheet Sergei Guidry SEAM RUBBER Work Phone: [facility] Start: 09-05-2024 End: 09-05-2024 Patient encounter status Sergei Guidry NP Work Phone: [facility] Start: 09-05-2024 End: 09-05-2024 Periodic preventive med est patient 18-39 yrs Sergei Guidry SEAM RUBBER Work Phone: [facility] Comment on above: Wellness examination (Primary Dx); Attention deficit hyperactivity disorder (ADHD), predominantly inattentive type (CMS/HCC) Start: 09-05-2024 End: 09-05-2024 ambulatory SERGEI GUIDRY Not Available Start: 08-04-2024 End: 08-04-2024 Refill Imani Villatoro MD Work Phone: [facility] Comment on above: Attention deficit hy peractivity disorder (ADHD), predominantly inattentive type (CMS/HCC) Start: 07-04-2024 End: 07-04-2024 Refill Imani Villatoro MD Work Phone: [facility] Comment on above: Attention deficit hy peractivity disorder (ADHD), predominantly inattentive type (CMS/HCC) Start: 06-23-2024 End: 06-23-2024 Emergency department patient visit [facility] Start: 05-30-2024 End: 05-30-2024 Office outpatient visit 15 minutes Sergei Guidry NP Work Phone: [facility] Comment on above: Attention deficit hy peractivity disorder (ADHD), predominantly inattentive type (CMS/HCC) (Primary Dx); Other constipation Start: 05-30-2024 End: 05-30-2024 ambulatory SERGEI GUIDRY Not Available Start: 05-30-2024 End: 05-30-2024 Bamboo flowsheet Sergei Guidry SEAM RUBBER Work Phone: [facility] Start: 05-30-2024 End: 05-30-2024 Bamboo flowsheet Sergei Guidry SEAM RUBBER Work Phone: [facility] Start: 04-30-2024 End: 04-30-2024 Yareli Villatoro MD Work Phone: [facility] Comment on above: Attention deficit hy peractivity disorder (ADHD), predominantly inattentive type (CMS/HCC) Start: 04-29-2024 End: 04-29-2024 Bamboo flowsheet Quincy Vikki DO Work Phone: [facility] Start: 04-29-2024 End: 05-06-2024 Bamboo flowsheet Quincy Vikki DO Work Phone: [facility] Start: 04-29-2024 End: 05-06-2024 Clinisync Result Encounter Quincy Vikki DO Work Phone: [facility] Unsolicited Start: 04-29-2024 End: 04-29-2024 Patient encounter procedure Quincy Vikki DO Work Phone: [facility] Work Phone: Start: 04-29-2024 End: 04-29-2024 Periodic preventive med est patient 18-39 yrs Quincy Vikki DO Work Phone: [facility] Comment on above: Well woman exam with routine gynecological exam Start: 04-29-2024 End: 04-29-2024 ambulatory QUINCY VIKKI Not Available Start: 03-03-2024 End: 03-03-2024 ambulatory SERGEI GUIDRY Not Available Start: 10-10-2023 Bamboo flowsheet Elba mortensen SEAM RUBBER Work Phone: [facility] Start: 10-10-2023 Bamboo flowsheet Elba mortensen SEAM RUBBER Work Phone: [facility] Start: 10-01-2023 Refill Imain harrington MD Work Phone: [facility] Comment on above: Attention deficit hy peractivity disorder (ADHD), predominantly inattentive type (CMS/HCC) Start: 04-19-2022 End: 04-19-[address] [facility] Facility: Procedures Date Procedure Procedure Detail Performing Clinician Start: 12-10-2024 HIV AB/P24 AG WITH REFLEX Quincy Vikki DO Work Phone: Start: 12-10-2024 RECURRENT VAGINITIS (HTRX) Quincy Vikki DO Work Phone: Start: 10-09-2024 [facility] Sergei Guidry SEAM RUBBER Work Phone: Start: 10-09-2024 STATUS COVID-19/FLU Sergei Guidry SEAM RUBBER Work Phone: Start: 04-29-2024 IGP,APTIMA HPV,AGE GDLN Quincy Vikki DO Work Phone: Start: 01-22-2023 End: 09-05-2024 History of cholecystectomy History of cholecystectomy Imani Villatoro MD Work Phone: Plan of Treatment Date Care Activity Detail Author Start: 05-08-2025 End: 05-08-2025 Patient encounter procedure 05/08/2025 9:30 AM EDT Office Visit [facility] [address] [place] [address] Sergei Guidry NP [address] [place] [address] [facility] [facility] Start: 05-07-2025 End: 05-07-2025 Patient encounter procedure [facility] Comment on above: Arrived Start: 05-04-2025 Influenza vaccination [facility] Start: 04-03-2025 End: 04-03-2025 Patient encounter procedure 04/03/2025 9:00 AM EDT Office Visit [facility] [address] [place] [phone] Sergei Guidry NP [address] [facility] [place] [address] [facility] Start: 01-23-2025 Influenza vaccination Influenza Vacc ine (#1) [facility] Comment on above: Postponed from 05/04 (Patient Refused) Start: 12-10-2024 End: 12-10-2024 Patient encounter procedure 12/10/2024 11:20 AM EDT Office Visit [facility] [address] [place] [address] Quincy Florez DO [address] [facility] [place] [address] Arrived [facility] Comment on above: Arrived Start: 12-04-2024 End: 12-04-2024 Patient encounter procedure 12/04/2024 8:00 AM EDT Office Visit [facility] [address] [facility] [place] [address] Sergei Guidry NP [address] [facility] [place] [address] [facility] Start: 11-28-2024 End: 11-28-2024 Patient encounter procedure 11/28/2024 8:30 AM EDT Office Visit [facility] [address] [facility] [place] [phone] Sergei Guidry NP [address] [facility] [place] [address] Arrived [facility] Comment on above: Arrived Start: 10-31-2024 Influenza vaccination Influenza Vacc ine (#1) [facility] Comment on above: Postponed from 05/04 (Patient Refused) Start: 09-05-2024 End: 09-05-2024 Patient encounter procedure 09/05/2024 9:30 AM EST Office Visit [facility] [address] [facility] [place] [address] [phone] Sergei Guidry NP [address] [place] [address] Arrived [facility] Comment on above: Arrived Start: 08-22-2024 End: 08-22-2024 Patient encounter procedure 08/22/2024 10:00 AM EST Office Visit [facility] [address] [facility] [place] [address] [phone] Sergei Guidry NP [address] [place] [address] [facility] Start: 07-25-2024 Influenza vaccination Influenza Vacc ine (#1) [facility] Comment on above: Postponed from 05/04 (Patient Refused) Start: 06-05-2024 End: 06-05-2024 Patient encounter procedure 06/05/2024 11:30 AM EDT Office Visit [facility] [address] [place] [address] Sergei Guidry NP [address] [place] [address] [facility] Start: 05-30-2024 End: 05-30-2024 Patient encounter procedure 05/30/2024 3:00 PM EDT Office Visit [facility] [address] [facility] [place] [address] [phone] Sergei Guidry NP [address] [place] [address] Arrived [facility] Comment on above: Arrived Start: 05-04-2024 Influenza vaccination Influenza Vacc ine (#1) [facility] Start: 04-29-2024 End: 04-29-2024 Patient encounter procedure [facility] Comment on above: Arrived Start: 03-02-2024 Influenza vaccination Influenza Vacc ine (#1) [facility] Comment on above: Postponed from 05/04 (Patient Refused) Start: 12-06-2023 End: 12-06-2023 Patient encounter procedure 12/06/2023 4:00 PM EDT Office Visit [facility] [address] [facility] [place] [phone] Sergei Guidry NP [address] [facility] [place] [address] [facility] Start: 10-10-2023 End: 10-10-2023 Patient encounter procedure [facility] Comment on above: Arrived Cytology Cervical or vaginal smear or scraping study Pap Smear Pathology and Cytology Routine Well woman exam with routine gynecological exam Ordered: 04/29/2024 [facility] Work Phone: Comment on above: Ordered: 04/29/2024 Cytology Cervical or vaginal smear or scraping study Pap Smear Pathology and Cytology Routine Well woman exam with routine gynecological exam Ordered: 05/07/2025 [facility] Work Phone: Comment on above: Ordered: 05/07/2025 Hepatitis B virus surface Ag [Presence] in Serum or Plasma by Immunoassay Hepatitis B surface antigen Lab Routine Sexually transmitted disease exposure Ordered: 12/10/2024 [facility] Comment on above: Ordered: 12/10/2024 HIV-1/HIV-2 antigen/antibody combination immunoassay HIV-1 and HIV-2 antibodies Lab Routine Sexually transmitted disease exposure Ordered: 12/10/2024 [facility] Work Phone: Comment on above: Ordered: 12/10/2024 Reagin Ab [Presence] in Serum by RPR RPR Lab Routine Sexually transmitted disease exposure Ordered: 12/10/2024 [facility] Comment on above: Ordered: 12/10/2024 Immunizations Immunization Date Immunization Notes Care Provider Tommy sanchez 04-21-2025 influenza, injectabl e, madin marvin canine kidney, preservative free Imani Villatoro MD Other Phone: [facility] 11-06-2024 tetanus toxoid, redu chilo diphtheria toxoid, and acellular pertussis vaccine, adsorbed Sergei Guidry [employer] Work Phone: [facility] 06-27-2022 influenza, injectabl e, quadrivalent, preservative free Imani Villatoro MD Work Phone: [facility] 06-27-2022 influenza virus vacc ine, unspecified formulation Imani Villatoro MD Work Phone: [facility] 05-19-2021 influenza, injectabl e, quadrivalent, preservative free Imani Villatoro MD Work Phone: [facility] 04-11-2013 meningococcal polysaccharide (groups A, C, Y and W-135) diphtheria toxoid conjugate vaccine (MCV4P) Imani Villatoro MD Work Phone: [facility] 04-11-2013 tetanus toxoid, redu chilo diphtheria toxoid, and acellular pertussis vaccine, adsorbed Imani Villatoro MD Work Phone: [facility] 03-09-2006 diphtheria, tetanus toxoids and acellular pertussis vaccine, unspecified formulation Imani Villatoro MD Work Phone: [facility] 03-09-2006 measles, mumps and r ubella virus vaccine Imani Villatoro MD Work Phone: [facility] 03-09-2006 poliovirus vaccine, inactivated Imani Villatoro MD Work Phone: [facility] 10-21-2002 diphtheria, tetanus toxoids and acellular pertussis vaccine, unspecified formulation Imani Villatoro MD Work Phone: [facility] 10-21-2002 haemophilus influenz ae type b vaccine, PRP-T conjugate Imani Villatoro MD Work Phone: [facility] 10-21-2002 poliovirus vaccine, inactivated Imani Villatoro MD Work Phone: [facility] 07-11-2002 measles, mumps and r ubella virus vaccine Imani Villatoro MD Work Phone: [facility] 04-11-2002 varicella virus vaccine Imani Villatoro MD Work Phone: [facility] 01-07-2002 hepatitis B vaccine, pediatric or pediatric/adolescent dosage Imani Villatoro MD Work Phone: [facility] 01-07-2002 pneumococcal conjuga te vaccine, 7 valent Imani Villatoro MD Work Phone: [facility] 2001 diphtheria, tetanus toxoids and acellular pertussis vaccine, unspecified formulation Imani Villatoro MD Work Phone: [facility] 2001 haemophilus influenz ae type b vaccine, PRP-T conjugate Imani Villatoro MD Work Phone: [facility] 2001 diphtheria, tetanus toxoids and acellular pertussis vaccine, unspecified formulation Imani Villatoro MD Work Phone: [facility] 2001 haemophilus influenz ae type b vaccine, PRP-T conjugate Imani Villatoro MD Work Phone: [facility] 2001 pneumococcal conjuga te vaccine, 7 valent Imani Villatoro MD Work Phone: [facility] 2001 poliovirus vaccine, inactivated Imani Villatoro MD Work Phone: [facility] 2001 diphtheria, tetanus toxoids and acellular pertussis vaccine, unspecified formulation Imani Villatoro MD Work Phone: [facility] 2001 haemophilus influenz ae type b vaccine, PRP-T conjugate Imani Villatoro MD Work Phone: [facility] 2001 hepatitis B vaccine, pediatric or pediatric/adolescent dosage Imani Villatoro MD Work Phone: [facility] 2001 pneumococcal conjuga te vaccine, 7 valent Imani Villatoro MD Work Phone: [facility] 2001 poliovirus vaccine, inactivated Imani Villatoro MD Work Phone: [facility] Payers Date Payer Category Payer Private Health Insurance [id number] 2017 Private Health Insurance [id number] 2001 Unknown [id number] 2001 Unknown [id number] [id number] [id number] 2001 Unknown [id number] 2.16.84 [id number] 2001 Unknown [id number] 2.16.84 [id number] 2001 Unknown [id number] 2.16.84 [id number] 2001 Unknown [id number] 2.16.84 [id number] 2001 Unknown [id number] [id number] [id number] 2001 Unknown [id number] [id number] [id number] 1959 Private Health Insurance [id number] Social History Date Type Detail Facility Start: 06-05-2023 Tobacco smoking stat [facility] Never smoked tobacco [facility] Start: 06-05-2023 Tobacco use and exposure Smoke less tobacco non-user [facility] Start: 09-06-2023 End: 05-07-2025 Alcohol intake Current drinker of alcohol (finding) [facility] Start: 03-22-2023 End: 05-30-2024 History of Social function [facility] Start: 03-22-2023 End: 05-30-2024 Humiliation, Afraid, Rape, and Kick questionnaire [HARK] [facility] Within the last year , have you been afraid of your partner or ex-partner? Yes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 Teams (unrecognized sec tion and content) Vegetable Worker Relationship Specialty Start Date End Date Imani Villatoro MD [address] [place] [address] PCP - General Family Medicine 03/22/23 Vegetable Worker Relationship Specialty Start Date End Date Imani Villatoro MD [address] [place] [address] PCP - General Family Medicine 03/22/23 Vegetable Worker Relationship Specialty Start Date End Date Imani Villatoro MD [address] [facility] [place] [address] PCP - General Family Medicine 03/22/23 Vegetable Worker Relationship Specialty Start Date End Date Imani Villatoro MD [address] [facility] [place] [address] PCP - General Family Medicine 03/22/23 Vegetable Worker Relationship Specialty Start Date End Date Imani Villatoro MD [address] [facility] [place] [address] PCP - General Family Medicine 03/22/23 Vegetable Worker Relationship Specialty Start Date End Date Imani Villatoro MD [address] [facility] [place] [address] PCP - General Family Medicine 03/22/23 Vegetable Worker Relationship Specialty Start Date End Date Imani Villatoro MD [address] [facility] [place] [address] PCP - General Family Medicine 03/22/23 Vegetable Worker Relationship Specialty Start Date End Date Imani Villatoro MD [address] [facility] [place] [address] PCP - General Family Medicine 03/22/23 Vegetable Worker Relationship Specialty Start Date End Date Imani Villatoro MD [address] [facility] [place] [address] PCP - General Family Medicine 03/22/23 Vegetable Worker Relationship Specialty Start Date End Date Imani Villatoro MD [address] [facility] [place] [address] PCP - General Family Medicine 03/22/23 Vegetable Worker Relationship Specialty Start Date End Date WonderImani lancaster MD [address] [facility] [place] [address] PCP - General Family Medicine 03/22/23 Vegetable Worker Relationship Specialty Start Date End Date WonderImani lancaster MD [address] [place] [address] PCP - General Family Medicine 03/22/23 Vegetable Worker Relationship Specialty Start Date End Date WonderImani lancaster MD [address] [facility] [place] [address] PCP - General Family Medicine 03/22/23 Vegetable Worker Relationship Specialty Start Date End Date WonderImani lancaster MD [address] [place] [address] PCP - General Family Medicine 03/22/23 Vegetable Worker Relationship Specialty Start Date End Date WonderImani lancaster MD PCP - General Family Medicine 03/22/23 Sergei Guidry NP [address] [place] [address] Nurse Practitioner Family Medicine 02/03/25 Vegetable Worker Relationship Specialty Start Date End Date WonderImani lancaster MD PCP - General Family Medicine 03/22/23 Sergei Guidry, SEAM RUBBER [address] [place] [address] Nurse Practitioner Family Medicine 02/03/25 Vegetable Worker Relationship Specialty Start Date End Date WonderImani lancaster MD PCP - General Family Medicine 03/22/23 Sergei Guidry NP [address] [place] [address] Nurse Practitioner Family Medicine 02/03/25 Vegetable Worker Relationship Specialty Start Date End Date Imani Villatoro MD PCP - General Family Medicine 03/22/23 Sergei Guidry NP [address] [place] [address] Nurse Practitioner Family Medicine 02/03/25 Reason for Visit (unrecogniz ed section and content) Reason Comments Well Women Visit Reason Comments Med Refill Pt is doing well. Pt has no questions or concerns today Reason Comments ADHD Reason Comments Med Refill Reason Comments Headache Nasal Congestion Chills, chest discom fort from coughing Reason Comments Follow-up Reason Comments STI Screening FOR RECORDS PERTAINING TO PATIENTS WHO ARE OR HAVE BEEN ENROLLED IN A CHEMICAL DEPENDENCY/SUBSTANCEABUSE PROGRAM, SOME INFORMATION MAY BE OMITTED. This clinical summary was aggregated from multiple sources. Caution should be exercised in using it in the provision of clinical care. This summary normalizes information from multiple sources, and as a consequence, information in this document may materially change the coding, format and clinical context of patient data. In addition, data may be omitted in some cases. CLINICAL DECISIONS SHOULD BE BASED ON THE PRIMARY CLINICAL RECORDS. [facility] [employer] [facility]. provides no warranty or guarantee of the accuracy or completeness of information in this document.
[2025-05-11 09:09] LABS: Age Gdln ACOG Testing Note (.); IGP, rfx Aptima HPV ASCU Note (.)
== END 2025-05-07 14:25 | disposition home or self-care (01) ==
LOC: LAB 14:24
PROVIDERS: Visit Provider Obstetrics & Gynecology
DX: Z01.419 Encounter for gynecological examination (general) (routine) without abnormal findings (principal)
CPT/HCPCS: 88175